=== PATIENT | female | born 1995 | race Caucasian/White ===

== ENCOUNTER → 2024-02-02 | Outpatient (REF) | payer OTHER ==
[2024-02-02 18:26] LABS: FOLLICLE STIMULATING HORMONE 6.4 mIU/ML; LUTEINIZING HORMONE 4.9 mIU/ML
[2024-02-02 18:27] LABS: PROLACTIN 12.4 NG/ML
== END ==
LOC: M LAB REF 16:45
PROVIDERS: ATTEND Internal Medicine
DX: E22.1 Hyperprolactinemia (principal)

== ENCOUNTER → 2024-02-19 | Outpatient (CLI) | payer OTHER | LOC: M WHC 13:15 | PROVIDERS: ATTEND Internal Medicine | DX: N83.202 Unspecified ovarian cyst, left side (principal); D25.0 Submucous leiomyoma of uterus ==